=== PATIENT | male | born 1955 | race Caucasian/White ===

== ENCOUNTER 2020-08-09 15:20 | Inpatient (IN) | payer OTHER ==
[2020-08-09 17:24] LABS: BASO % 0.3 % (0-2.0); HEMATOCRIT 36.9 % (35.4-49); HEMOGLOBIN 12.2 GM/dL (11.7-16.9); LYMPH % 13.9 % (8-40); MCH 32.2 pg (25.7-33.7); MEAN CELL VOLUME 97.7 fl (80-96); MEAN PLT VOLUME 9.2 fl (7.5-11.1); MONO % 13.5 % (3.8-10.2); NEUT % 71.3 % (42.8-82.8); PLATELET COUNT 201 K/MM3 (134-434); RBC 3.78 M/mm3 (4.00-5.60); RDW 14.4 % (11.9-15.9); WHITE BLOOD COUNT 7.7 K/mm3 (4.0-10.0)
[2020-08-09 17:41] LABS: POTASSIUM 5.6 mmol/L (3.5-5.1)
[2020-08-09 17:44] LABS: CALCIUM 8.9 mg/dL (8.5-10.1)
[2020-08-09 17:45] LABS: ALBUMIN 3.9 g/dl (3.4-5.0); BLOOD UREA NITROGEN 63.5 mg/dL (7-18)
[2020-08-09 17:46] LABS: MAGNESIUM 2.6 mg/dL (1.8-2.4)
[2020-08-09 17:49] LABS: INR 1.05 (0.83-1.09); PROTHROMBIN TIME (PATIENT) 12.7 SEC (9.7-13.0)
[2020-08-09 17:51] LABS: BILIRUBIN,TOTAL 0.3 mg/dL (0.2-1); TOT PROT 8.5 g/dl (6.4-8.2)
[2020-08-09 18:06] LABS: N-TERMINAL BNP 46252.2 pg/ml (5-125)
[2020-08-09 18:08] LABS: CREATININE 10.9 mg/dL (0.55-1.3)
[2020-08-09] MEDS ORDERED: CARVEDILOL 25 MG TABLET (FP) PO SCH (22:00)
[2020-08-09 22:21] LABS: PHOSPHOROUS 8.7 mg/dL (2.5-4.9)
[2020-08-09] MEDS: CARVEDILOL 25 MG TABLET (FP) PO SCH (22:25)
[2020-08-09] MEDS ORDERED: ACETAMINOPHEN 1000 MG/100 ML VIAL (NON FORMULARY) IVPB ONE (22:41)
[2020-08-09] MEDS ORDERED: ACETAMINOPHEN INJECTION 100 ML IVPB ONE (23:12)
[2020-08-10] MEDS: SEVELAMER CARBONATE 800 MG TAB (FP) PO SCH ×3 (09:55→18:32)
[2020-08-10] MEDS ORDERED: amLODIPine BESYLATE 10 MG TABLET (FP) PO SCH (10:00)
[2020-08-10] MEDS: CARVEDILOL 25 MG TABLET (FP) PO SCH ×3 (10:36→21:06)
[2020-08-10] MEDS: amLODIPine BESYLATE 10 MG TABLET (FP) PO SCH (10:36)
[2020-08-10] MEDS ORDERED: SODIUM CHLORIDE 250 ML IV PRN (12:30)
[2020-08-10] MEDS ORDERED: HEPARIN NA (PORCINE) 5,000 UNITS/ML 1ML VIAL IVPUSH ONE (12:30)
[2020-08-10] MEDS: HEPARIN NA (PORCINE) 5,000 UNITS/ML 1ML VIAL IVPUSH SCH (14:37)
[2020-08-10 14:51] LABS: HEMATOCRIT 33.4 % (35.4-49); MCH 31.9 pg (25.7-33.7); MCHC 32.9 g/dl (32.0-35.9); MEAN CELL VOLUME 97.1 fl (80-96); MEAN PLT VOLUME 9.9 fl (7.5-11.1); PLATELET COUNT 180 K/MM3 (134-434); RBC 3.44 M/mm3 (4.00-5.60); RDW 14.6 % (11.9-15.9); WHITE BLOOD COUNT 8.3 K/mm3 (4.0-10.0)
[2020-08-10 15:46] LABS: POTASSIUM 4.6 mmol/L (3.5-5.1)
[2020-08-10 16:01] LABS: CALCIUM 8.3 mg/dL (8.5-10.1)
[2020-08-10 16:02] LABS: ALBUMIN 3.7 g/dl (3.4-5.0); BLOOD UREA NITROGEN 59.7 mg/dL (7-18)
[2020-08-10 16:05] LABS: PHOSPHOROUS 6.6 mg/dL (2.5-4.9)
[2020-08-10 16:06] LABS: BILIRUBIN,TOTAL 0.3 mg/dL (0.2-1)
[2020-08-10 16:08] LABS: MAGNESIUM 2.3 mg/dL (1.8-2.4)
[2020-08-10 16:10] LABS: CREATININE 9.8 mg/dL (0.55-1.3)
[2020-08-10 17:43] VITALS: BMI 25.9
[2020-08-10] MEDS: LOSARTAN POTASSIUM 50 MG TABLET PO SCH ×2 (18:32→18:39)
[2020-08-10] MEDS: CALCIUM ACETATE 667 MG CAPSULE (FP) PO SCH ×2 (18:32→18:38)
[2020-08-11] MEDS ORDERED: ACETAMINOPHEN 1000 MG/100 ML VIAL (NON FORMULARY) IVPB ONE
[2020-08-11 09:26] LABS: BASO % 0.8 % (0-2.0); EOS % 1.3 % (0-4.5); HEMATOCRIT 33.6 % (35.4-49); HEMOGLOBIN 10.8 GM/dL (11.7-16.9); LYMPH % 16.4 % (8-40); MCH 31.2 pg (25.7-33.7); MCHC 32.2 g/dl (32.0-35.9); MEAN CELL VOLUME 96.9 fl (80-96); MEAN PLT VOLUME 8.7 fl (7.5-11.1); MONO % 12.2 % (3.8-10.2); NEUT % 69.3 % (42.8-82.8); PLATELET COUNT 180 K/MM3 (134-434); RBC 3.47 M/mm3 (4.00-5.60); RDW 14.1 % (11.9-15.9); WHITE BLOOD COUNT 8.3 K/mm3 (4.0-10.0)
[2020-08-11 09:45] LABS: POTASSIUM 5.1 mmol/L (3.5-5.1)
[2020-08-11 09:47] LABS: ALBUMIN 3.3 g/dl (3.4-5.0)
[2020-08-11 09:48] LABS: BLOOD UREA NITROGEN 50.7 mg/dL (7-18); MAGNESIUM 2.3 mg/dL (1.8-2.4)
[2020-08-11 09:52] LABS: BILIRUBIN,TOTAL 0.3 mg/dL (0.2-1); TOT PROT 7.4 g/dl (6.4-8.2)
[2020-08-11 09:59] LABS: CREATININE 8.9 mg/dL (0.55-1.3)
[2020-08-11] MEDS ORDERED: PANTOPRAZOLE 40 MG TABLET PO SCH (10:00)
[2020-08-11] MEDS ORDERED: ASPIRIN 81 MG CHEWABLE TABLETS PO SCH (10:00)
[2020-08-11] MEDS ORDERED: FOLIC ACID 1 MG TABLET (FP) PO SCH (10:00)
[2020-08-11] MEDS: CARVEDILOL 25 MG TABLET (FP) PO SCH (10:04)
[2020-08-11] MEDS: amLODIPine BESYLATE 10 MG TABLET (FP) PO SCH (10:04)
[2020-08-11 11:02] VITALS: PULSE 74; TEMP 98.1
[2020-08-11] MEDS: LOSARTAN POTASSIUM 50 MG TABLET PO SCH (11:16)
[2020-08-11] MEDS: CALCIUM ACETATE 667 MG CAPSULE (FP) PO SCH ×2 (11:16→13:47)
[2020-08-11] MEDS: SEVELAMER CARBONATE 800 MG TAB (FP) PO SCH ×2 (11:16→13:47)
[2020-08-11 12:55] VITALS: BP 151/76
[2020-08-13 14:08] LABS: HEP B CORE AB, TOT Negative (Negative)
== END 2020-08-11 14:00 | disposition home or self-care (01) | DRG 291 ==
LOC: JER 15:20 → JERBED 19:50 → J5S 08-10 17:07
PROVIDERS: ADMIT Internal Medicine; ATTEND Internal Medicine
PROC: 5A1D70Z Performance of Urinary Filtration, Intermittent, Less than 6 Hours Per Day (ICD-10-PCS; principal; 2020-08-10)
DX: I13.2 Hypertensive heart and chronic kidney disease with heart failure and with stage 5 chronic kidney disease, or end stage renal disease (principal); N18.6 End stage renal disease; N17.9 Acute kidney failure, unspecified; I16.0 Hypertensive urgency; I50.9 Heart failure, unspecified; E11.65 Type 2 diabetes mellitus with hyperglycemia; E11.51 Type 2 diabetes mellitus with diabetic peripheral angiopathy without gangrene; E87.5 Hyperkalemia; K74.60 Unspecified cirrhosis of liver; E78.5 Hyperlipidemia, unspecified; M25.512 Pain in left shoulder; Z99.2 Dependence on renal dialysis
CPT/HCPCS: 36415; 71250-TC; 73030-TC-LT-FY; 80053; 80061; 82550; 82553; 83036; 83721; 83735; 83880; 84100; 84484; 85025; 85027; 85610; 85730; 86704; 86706; 86707; 86708; 86709; 86803; 87340; 93005; 93010; 97116-GP; 97161-GP; 99285-25; C9803; J0131; J1644; U0003

== ENCOUNTER 2020-09-04 07:28 | Inpatient (IN) | payer OTHER ==
[2020-09-04] MEDS ORDERED: CALCIUM GLUCONATE 10% - 1,000 MG/10 ML VIAL IVPUSH ONE (08:46)
[2020-09-04] MEDS ORDERED: CALCIUM GLUCONATE 10% - 1,000 MG/10 ML VIAL ONE (08:48)
[2020-09-04 09:01] LABS: VENOUS O2 SATURATION 43.5 % (70-80); VENOUS PCO2 44.1 mmHg (38-52); VENOUS PH 7.301 (7.310-7.410)
[2020-09-04 09:17] LABS: PROTHROMBIN TIME (PATIENT) 12.1 SEC (9.7-13.0)
[2020-09-04 09:20] LABS: ACTIVATED PTT 28.9 SECONDS (25.2-36.5)
[2020-09-04 09:26] LABS: BASO % 0.3 % (0-2.0); CALCIUM 7.4 mg/dL (8.5-10.1); EOS % 0.4 % (0-4.5); HEMATOCRIT 37.4 % (35.4-49); HEMOGLOBIN 12.2 GM/dL (11.7-16.9); LYMPH % 4.2 % (8-40); MCH 32.1 pg (25.7-33.7); MCHC 32.5 g/dl (32.0-35.9); MEAN CELL VOLUME 98.8 fl (80-96); MEAN PLT VOLUME 9.4 fl (7.5-11.1); MONO % 6.6 % (3.8-10.2); NEUT % 88.5 % (42.8-82.8); PLATELET COUNT 168 K/MM3 (134-434); RBC 3.78 M/mm3 (4.00-5.60); RDW 15.3 % (11.9-15.9); WHITE BLOOD COUNT 15.1 K/mm3 (4.0-10.0)
[2020-09-04 09:32] LABS: BILIRUBIN,TOTAL 0.8 mg/dL (0.2-1); TOT PROT 8.2 g/dl (6.4-8.2)
[2020-09-04] MEDS ORDERED: ACETAMINOPHEN 1000 MG/100 ML BAG IVPB ONE (09:33)
[2020-09-04 09:48] LABS: N-TERMINAL BNP 60634.6 pg/ml (5-125)
[2020-09-04] MEDS ORDERED: ACETAMINOPHEN INJECTION 100 ML IVPB ONE (09:49)
[2020-09-04 09:57] LABS: CREATININE 13.5 mg/dL (0.55-1.3)
[2020-09-04] MEDS ORDERED: INSULIN REGULAR HUMAN 100 UNITS/ML *VIAL IVPUSH ONE ×2 (09:59→10:07)
[2020-09-04] MEDS ORDERED: ALBUTEROL SO4 HFA INHALER IH ONE ×2 (09:59→10:30)
[2020-09-04] MEDS ORDERED: SODIUM ZIRCONIUM CYCLOSILICATE (LOKELMA) 5 GM PACKET PO ONE (10:00)
[2020-09-04] MEDS ORDERED: SODIUM BICARBONATE 8.4% 50 MEQ/50 ML DISP.SYRIN IVPUSH ONE (10:15)
[2020-09-04] MEDS ORDERED: SODIUM ZIRCONIUM CYCLOSILICATE (LOKELMA) 5 GM PACKET ONE (10:30)
[2020-09-04] MEDS ORDERED: SODIUM BICARBONATE 8.4% - 50 ML ONE (10:30)
[2020-09-04] MEDS ORDERED: INSULIN REGULAR HUMAN 100 UNITS/ML *VIAL ONE ×2 (10:36→10:49)
[2020-09-04] MEDS ORDERED: SODIUM CHLORIDE 250 ML IV PRN (10:56)
[2020-09-04] MEDS ORDERED: NITROGLYCERIN SUBLINGUAL 1/150 0.4 MG TAB SL ONE (11:43)
[2020-09-04] MEDS ORDERED: NITROGLYCERIN SUBLINGUAL 1/150 0.4 MG TAB ONE (11:54)
[2020-09-04] MEDS ORDERED: VANCOMYCIN 1 GM in D5W (PRE-DOCKED) 1,000 MG/250 ML IVPB ONE (12:09)
[2020-09-04] MEDS ORDERED: MEROPENEM 1 GM in DEXTROSE 5%-WATER 100 ML IVPB ONE (12:10)
[2020-09-04 12:27] LABS: ALBUMIN 3.6 g/dl (3.4-5.0); CALCIUM 7.6 mg/dL (8.5-10.1)
[2020-09-04 12:32] LABS: BILIRUBIN,TOTAL 0.7 mg/dL (0.2-1); TOT PROT 7.4 g/dl (6.4-8.2)
[2020-09-04 12:45] LABS: BLOOD UREA NITROGEN 108.1 mg/dL (7-18)
[2020-09-04 13:09] VITALS: BMI 26.2
[2020-09-04] MEDS ORDERED: MEROPENEM 1 GM VIAL (RESTRICTED TO ID) IVPB ONE (14:28)
[2020-09-04] MEDS ORDERED: DEXTROSE 5%-WATER 100 ML IVPB ONE (14:29)
[2020-09-04] MEDS: CALCIUM ACETATE 667 MG CAPSULE (FP) PO SCH ×2 (16:26→17:34)
[2020-09-04] MEDS: LOSARTAN POTASSIUM 50 MG TABLET PO SCH (16:26)
[2020-09-04] MEDS: ASPIRIN 81 MG CHEWABLE TABLETS PO SCH (16:27)
[2020-09-04] MEDS: ACETAMINOPHEN 500 MG TABLET (FP) PO PRN (16:27)
[2020-09-04] MEDS: amLODIPine BESYLATE 10 MG TABLET (FP) PO SCH (16:27)
[2020-09-04] MEDS: PANTOPRAZOLE 40 MG TABLET PO SCH (16:27)
[2020-09-04] MEDS: SEVELAMER CARBONATE 800 MG TAB (FP) PO SCH ×2 (16:29→17:34)
[2020-09-04] MEDS: INSULIN SLIDING SCALE (NOVOLOG) 1 VIAL SQ SCH (17:24)
[2020-09-04 20:22] LABS: CALCIUM 7.2 mg/dL (8.5-10.1)
[2020-09-04 20:36] LABS: BLOOD UREA NITROGEN 48.7 mg/dL (7-18)
[2020-09-04 20:43] LABS: CREATININE 8.1 mg/dL (0.55-1.3)
[2020-09-04] MEDS: CARVEDILOL 25 MG TABLET (FP) PO SCH (21:34)
[2020-09-05] MEDS: ACETAMINOPHEN 500 MG TABLET (FP) PO PRN (02:58)
[2020-09-05] MEDS ORDERED: ACETAMINOPHEN 1000 MG/100 ML BAG IVPB PRN (05:41)
[2020-09-05] MEDS ORDERED: oxyCODONE HCL 5 MG TABLET PO ONE (06:23)
[2020-09-05] MEDS: INSULIN SLIDING SCALE (NOVOLOG) 1 VIAL SQ SCH ×3 (06:50→16:32)
[2020-09-05] MEDS: FOLIC ACID 1 MG TABLET (FP) PO SCH (09:11)
[2020-09-05] MEDS: amLODIPine BESYLATE 10 MG TABLET (FP) PO SCH ×2 (09:11→09:23)
[2020-09-05] MEDS: ASPIRIN 81 MG CHEWABLE TABLETS PO SCH (09:11)
[2020-09-05] MEDS: PANTOPRAZOLE 40 MG TABLET PO SCH (09:11)
[2020-09-05] MEDS: SEVELAMER CARBONATE 800 MG TAB (FP) PO SCH ×3 (09:11→17:29)
[2020-09-05] MEDS: CALCIUM ACETATE 667 MG CAPSULE (FP) PO SCH ×3 (09:12→17:29)
[2020-09-05] MEDS: CARVEDILOL 25 MG TABLET (FP) PO SCH ×2 (09:12→21:22)
[2020-09-05] MEDS: LOSARTAN POTASSIUM 50 MG TABLET PO SCH (09:12)
[2020-09-05] MEDS ORDERED: SODIUM CHLORIDE 250 ML IV PRN (09:18)
[2020-09-05 09:26] LABS: BASO % 0.3 % (0-2.0); EOS % 1.1 % (0-4.5); HEMATOCRIT 33.5 % (35.4-49); HEMOGLOBIN 11.1 GM/dL (11.7-16.9); LYMPH % 8.6 % (8-40); MCH 32.9 pg (25.7-33.7); MCHC 33.2 g/dl (32.0-35.9); MEAN CELL VOLUME 98.9 fl (80-96); MEAN PLT VOLUME 10.1 fl (7.5-11.1); MONO % 11.4 % (3.8-10.2); NEUT % 78.6 % (42.8-82.8); PLATELET COUNT 136 K/MM3 (134-434); RBC 3.39 M/mm3 (4.00-5.60); RDW 15.3 % (11.9-15.9); WHITE BLOOD COUNT 10.6 K/mm3 (4.0-10.0)
[2020-09-05 09:55] LABS: ALBUMIN 3.1 g/dl (3.4-5.0); MAGNESIUM 2.2 mg/dL (1.8-2.4)
[2020-09-05 09:56] LABS: BLOOD UREA NITROGEN 60.1 mg/dL (7-18)
[2020-09-05 10:00] LABS: BILIRUBIN,TOTAL 0.9 mg/dL (0.2-1); TOT PROT 6.6 g/dl (6.4-8.2)
[2020-09-05] MEDS ORDERED: SODIUM ZIRCONIUM CYCLOSILICATE (LOKELMA) 5 GM PACKET PO ONE (10:00)
[2020-09-05 10:13] LABS: CREATININE 9.9 mg/dL (0.55-1.3)
[2020-09-05 10:14] LABS: CALCIUM 6.9 mg/dL (8.5-10.1)
[2020-09-05] MEDS ORDERED: DEXTROSE 50%-WATER - 25 GM/50 ML VIAL IVPUSH ONE (10:28)
[2020-09-05] MEDS ORDERED: CALCIUM GLUCONATE 10% - 1,000 MG/10 ML VIAL IVPB ONE (11:15)
[2020-09-05] MEDS ORDERED: INSULIN REGULAR HUMAN 100 UNITS/ML *VIAL SQ ONE (11:15)
[2020-09-05] MEDS ORDERED: DEXTROSE 50%-WATER - 25 GM/50 ML VIAL ONE (11:24)
[2020-09-05] MEDS ORDERED: PARICALCITOL 5 MCG/ML VIAL IVPUSH ONE (12:00)
[2020-09-05] MEDS ORDERED: HEPARIN NA (PORCINE) 5,000 UNITS/ML 1ML VIAL IVPUSH ONE (12:15)
[2020-09-05] MEDS ORDERED: PT OWN MED DRAWER 7, Y5N ONE ×3 (12:43→15:24)
[2020-09-05] MEDS ORDERED: LIDOCAINE HCL 1%, 10 MG/ML (20ML VIAL) SQ ONE (14:22)
[2020-09-05] MEDS ORDERED: methylPREDNISolone ACET (DEPO) 80 MG/1 ML VIAL IAR ONE (14:22)
[2020-09-06] MEDS: INSULIN SLIDING SCALE (NOVOLOG) 1 VIAL SQ SCH (06:12)
[2020-09-06 06:35] LABS: BASO % 0.1 % (0-2.0); HEMATOCRIT 35.8 % (35.4-49); HEMOGLOBIN 11.8 GM/dL (11.7-16.9); LYMPH % 5.2 % (8-40); MCH 32.3 pg (25.7-33.7); MCHC 32.9 g/dl (32.0-35.9); MEAN CELL VOLUME 98.1 fl (80-96); MEAN PLT VOLUME 9.8 fl (7.5-11.1); MONO % 6.3 % (3.8-10.2); NEUT % 88.4 % (42.8-82.8); PLATELET COUNT 139 K/MM3 (134-434); RBC 3.65 M/mm3 (4.00-5.60); RDW 15.5 % (11.9-15.9); WHITE BLOOD COUNT 12.9 K/mm3 (4.0-10.0)
[2020-09-06 07:10] LABS: BLOOD UREA NITROGEN 52.9 mg/dL (7-18); MAGNESIUM 1.9 mg/dL (1.8-2.4)
[2020-09-06 07:13] LABS: PHOSPHOROUS 6.2 mg/dL (2.5-4.9)
[2020-09-06 07:14] LABS: BILIRUBIN,TOTAL 0.5 mg/dL (0.2-1)
[2020-09-06 07:15] LABS: TOT PROT 6.8 g/dl (6.4-8.2)
[2020-09-06 07:24] LABS: CREATININE 8.4 mg/dL (0.55-1.3)
[2020-09-06 07:25] LABS: CALCIUM 6.8 mg/dL (8.5-10.1)
[2020-09-06] MEDS ORDERED: SODIUM ZIRCONIUM CYCLOSILICATE (LOKELMA) 5 GM PACKET PO SCH ×2 (07:54→10:30)
[2020-09-06] MEDS ORDERED: CALCIUM GLUCONATE 10% - 1,000 MG/10 ML VIAL IVPUSH ONE (07:57)
[2020-09-06] MEDS ORDERED: SODIUM ZIRCONIUM CYCLOSILICATE (LOKELMA) 10 GM PACKET PO SCH (07:59)
[2020-09-06] MEDS ORDERED: CALCIUM GLUCONATE 10% - 1,000 MG/10 ML VIAL IVPB ONE (08:00)
[2020-09-06] MEDS: SEVELAMER CARBONATE 800 MG TAB (FP) PO SCH (08:26)
[2020-09-06] MEDS: CALCIUM ACETATE 667 MG CAPSULE (FP) PO SCH (08:26)
[2020-09-06] MEDS ORDERED: INSULIN REGULAR HUMAN 100 UNITS/ML *VIAL IVPUSH ONE (08:30)
[2020-09-06] MEDS ORDERED: PT OWN MED DRAWER 7, Y5N ONE (10:32)
[2020-09-06] MEDS: ASPIRIN 81 MG CHEWABLE TABLETS PO SCH (10:34)
[2020-09-06] MEDS: FOLIC ACID 1 MG TABLET (FP) PO SCH (10:35)
[2020-09-06] MEDS: PANTOPRAZOLE 40 MG TABLET PO SCH (10:36)
[2020-09-06] MEDS: CARVEDILOL 25 MG TABLET (FP) PO SCH (10:37)
[2020-09-06] MEDS: LOSARTAN POTASSIUM 50 MG TABLET PO SCH (10:37)
[2020-09-06] MEDS: amLODIPine BESYLATE 10 MG TABLET (FP) PO SCH (10:37)
[2020-09-06 10:40] VITALS: BP 150/83; PULSE 68; TEMP 97.8
[2020-09-07] MEDS ORDERED: SODIUM ZIRCONIUM CYCLOSILICATE (LOKELMA) 5 GM PACKET PO ONE (11:40)
== END 2020-09-06 14:39 | disposition home or self-care (01) | DRG 640 ==
LOC: JER 07:28 → JERBED 10:29 → J4S 12:14
PROVIDERS: ADMIT Internal Medicine; ATTEND Internal Medicine
PROC: 3E0U33Z Introduction of Anti-inflammatory into Joints, Percutaneous Approach (ICD-10-PCS; principal; 2020-09-05)
PROC: 5A1D70Z Performance of Urinary Filtration, Intermittent, Less than 6 Hours Per Day (ICD-10-PCS; 2020-09-05)
DX: E87.70 Fluid overload, unspecified (principal); N18.6 End stage renal disease; J18.9 Pneumonia, unspecified organism; I13.2 Hypertensive heart and chronic kidney disease with heart failure and with stage 5 chronic kidney disease, or end stage renal disease; I24.8 Other forms of acute ischemic heart disease; I42.9 Cardiomyopathy, unspecified; E87.5 Hyperkalemia; E78.5 Hyperlipidemia, unspecified; E11.21 Type 2 diabetes mellitus with diabetic nephropathy; D63.1 Anemia in chronic kidney disease; M75.52 Bursitis of left shoulder; I25.119 Atherosclerotic heart disease of native coronary artery with unspecified angina pectoris; D72.829 Elevated white blood cell count, unspecified; Z99.2 Dependence on renal dialysis
CPT/HCPCS: 36415; 71045-TC-FY; 80048; 80053; 82550; 82803; 82962; 83735; 83880; 84100; 84484; 85025; 85610; 85730; 93005; 93010; 99285-25; C9803; J0131; J1644; U0003

== ENCOUNTER 2021-08-02 06:50 | Inpatient (IN) | payer OTHER ==
[2021-08-02 07:26] VITALS: BMI 29.5
[2021-08-02 08:26] LABS: HEMOGLOBIN 15.3 GM/dL (11.7-16.9); MCH 29.7 pg (25.7-33.7); MCHC 32.7 g/dl (32.0-35.9); MEAN CELL VOLUME 90.8 fl (80-96); PLATELET COUNT 140 10^3/uL (134-434); RBC 5.17 M/mm3 (4.00-5.60); RDW 14.7 % (11.9-15.9); WHITE BLOOD COUNT 7.9 K/mm3 (4.0-10.0)
[2021-08-02 08:44] LABS: CHLORIDE 108 mmol/L (98-107); SODIUM 138 mmol/L (136-145)
[2021-08-02 08:49] LABS: ANION GAP 10 MMOL/L (8-16); CALCIUM 9.4 mg/dL (8.5-10.1); CO2 21 mmol/L (21-32); GLUCOSE,RANDOM 178 mg/dL (74-106)
[2021-08-02 08:50] LABS: ALBUMIN 3.5 g/dl (3.4-5.0)
[2021-08-02 08:53] LABS: CREATININE 1.6 mg/dL (0.55-1.3); SGOT/AST 16 U/L (15-37); SGPT/ALT 26 U/L (13-61)
[2021-08-02 08:54] LABS: BILIRUBIN,TOTAL 0.5 mg/dL (0.2-1); TOT PROT 7.3 g/dl (6.4-8.2)
[2021-08-02 08:55] LABS: ALK PHOS 107 U/L (45-117)
[2021-08-02] MEDS ORDERED: IMIPENEM IV ONE (09:18)
[2021-08-02] MEDS ORDERED: CILASTATIN SODIUM IV ONE (09:18)
[2021-08-02] MEDS ORDERED: SODIUM CHLORIDE IV ONE (09:18)
[2021-08-02] MEDS ORDERED: VANCOMYCIN HCL 1,500 MG in DEXTROSE 5%-WATER - 500 ML IVPB ONE (09:24)
[2021-08-02 09:33] LABS: ANISOCYTOSIS 1+; MACROCYTOSIS 0; PLATELET ESTIMATE DECREASED
[2021-08-02] MEDS ORDERED: VANCOMYCIN PREMIX 1.5 GM 1,500 MG/300 ML BAG IVPB ONE (09:39)
[2021-08-02 13:23] LABS: URINE APPEARANCE CLEAR; URINE BILIRUBIN NEGATIVE (NEGATIVE); URINE COLOR YELLOW; URINE GLUCOSE (UA) NEGATIVE (NEGATIVE); URINE KETONE NEGATIVE (NEGATIVE); URINE LEUK ESTERASE NEGATIVE (NEGATIVE); URINE NITRITE NEGATIVE (NEGATIVE); URINE PROTEIN NEGATIVE (NEGATIVE); URINE UROBILINOGEN 0.2 mg/dL (0.2-1.0)
[2021-08-02] MEDS ORDERED: TACROLIMUS ANHYDROUS 5 MG CAPSULE PO ONE (15:36)
[2021-08-02] MEDS ORDERED: MYCOPHENOLATE SODIUM 360 MG TABLET.DR PO ONE (15:38)
[2021-08-02] MEDS ORDERED: PANTOPRAZOLE 40 MG TABLET PO ONE (15:39)
[2021-08-02] MEDS: SODIUM BICARBONATE 650 MG TABLET PO SCH (16:32)
[2021-08-02] MEDS: INSULIN SLIDING SCALE (NOVOLOG) 1 VIAL SQ SCH ×2 (18:31→23:07)
[2021-08-02] MEDS ORDERED: PT OWN MED DRAWER 7, Y5N ONE (22:58)
[2021-08-02] MEDS: SENNOSIDES 8.6MG TABLET (FP) PO SCH (23:19)
[2021-08-02] MEDS: INSULIN (LEVEMIR) 100 UNITS/ML UNITS SQ SCH (23:19)
[2021-08-03] MEDS: MYCOPHENOLATE SODIUM 360 MG TABLET.DR PO SCH ×3 (00:14→21:56)
[2021-08-03] MEDS: INSULIN SLIDING SCALE (NOVOLOG) 1 VIAL SQ SCH ×4 (06:24→21:53)
[2021-08-03 08:47] LABS: EOS % 0.9 % (0-4.5); HEMATOCRIT 46.5 % (35.4-49); HEMOGLOBIN 15.3 GM/dL (11.7-16.9); LYMPH % 10.2 % (8-40); MCH 30.2 pg (25.7-33.7); MEAN CELL VOLUME 91.4 fl (80-96); MEAN PLT VOLUME 9.4 fl (7.5-11.1); MONO % 9.3 % (3.8-10.2); NEUT % 78.6 % (42.8-82.8); PLATELET COUNT 134 10^3/uL (134-434); RBC 5.08 M/mm3 (4.00-5.60); RDW 14.6 % (11.9-15.9); WHITE BLOOD COUNT 8.6 K/mm3 (4.0-10.0)
[2021-08-03 09:19] LABS: CHLORIDE 108 mmol/L (98-107); SODIUM 138 mmol/L (136-145)
[2021-08-03 09:21] LABS: ANION GAP 11 MMOL/L (8-16); BLOOD UREA NITROGEN 21.9 mg/dL (7-18); CALCIUM 9.1 mg/dL (8.5-10.1); CO2 19 mmol/L (21-32)
[2021-08-03 09:22] LABS: GLUCOSE,RANDOM 214 mg/dL (74-106)
[2021-08-03 09:25] LABS: CREATININE 1.4 mg/dL (0.55-1.3)
[2021-08-03] MEDS: DOCUSATE SODIUM 100 MG CAPSULE (FP) PO SCH (09:47)
[2021-08-03] MEDS: SODIUM BICARBONATE 650 MG TABLET PO SCH (09:47)
[2021-08-03] MEDS: PANTOPRAZOLE 40 MG TABLET PO SCH (09:47)
[2021-08-03] MEDS: FOLIC ACID 1 MG TABLET (FP) PO SCH (09:47)
[2021-08-03 09:54] LABS: ANISOCYTOSIS 0; HELMET CELLS 0; HOWELL-JOLLY BODIES 0; MACROCYTOSIS 0; OVALOCYTE 0; PLATELET ESTIMATE DECREASED; ROULEAU 0; SICKELED CELLS 0; TARGET CELLS 0; TEAR DROP CELLS 0; TOXIC GRANULATION 0
[2021-08-03] MEDS ORDERED: TACROLIMUS ANHYDROUS 5 MG CAPSULE PO SCH ×2 (10:00)
[2021-08-03] MEDS ORDERED: TACROLIMUS ANHYDROUS 2 MG, TACROLIMUS ANHYDROUS 0.5 MG PO SCH (10:00)
[2021-08-03] MEDS: NYSTATIN 500,000 UNITS/5 ML SUSPENSION PO SCH ×3 (13:05→23:13)
[2021-08-03] MEDS ORDERED: TACROLIMUS ANHYDROUS 1 MG CAPSULE PO ONE (16:42)
[2021-08-03] MEDS: predniSONE 5 MG TABLET (UD) PO SCH (17:16)
[2021-08-03] MEDS: INSULIN (LEVEMIR) 100 UNITS/ML UNITS SQ SCH (21:24)
[2021-08-03] MEDS: SENNOSIDES 8.6MG TABLET (FP) PO SCH (21:30)
[2021-08-03] MEDS: TACROLIMUS ANHYDROUS 5 MG, TACROLIMUS ANHYDROUS 1 MG PO SCH (21:30)
[2021-08-03] MEDS ORDERED: TACROLIMUS ANHYDROUS 1 MG CAPSULE PO SCH (22:00)
[2021-08-04] MEDS: NYSTATIN 500,000 UNITS/5 ML SUSPENSION PO SCH ×4 (06:05→23:08)
[2021-08-04] MEDS: INSULIN SLIDING SCALE (NOVOLOG) 1 VIAL SQ SCH ×4 (06:05→23:10)
[2021-08-04 09:27] LABS: ALBUMIN 3.3 g/dl (3.4-5.0); CALCIUM 8.9 mg/dL (8.5-10.1)
[2021-08-04 09:28] LABS: BLOOD UREA NITROGEN 22.6 mg/dL (7-18)
[2021-08-04 09:31] LABS: CREATININE 1.3 mg/dL (0.55-1.3); TOT PROT 6.8 g/dl (6.4-8.2)
[2021-08-04 09:32] LABS: BILIRUBIN,TOTAL 0.5 mg/dL (0.2-1)
[2021-08-04] MEDS ORDERED: PT OWN MED DRAWER 7, Y5N ONE ×2 (09:49→22:59)
[2021-08-04] MEDS: predniSONE 5 MG TABLET (UD) PO SCH (09:53)
[2021-08-04] MEDS: FOLIC ACID 1 MG TABLET (FP) PO SCH (09:53)
[2021-08-04] MEDS: PANTOPRAZOLE 40 MG TABLET PO SCH (09:53)
[2021-08-04] MEDS: SODIUM BICARBONATE 650 MG TABLET PO SCH (09:53)
[2021-08-04] MEDS: DOCUSATE SODIUM 100 MG CAPSULE (FP) PO SCH (09:53)
[2021-08-04] MEDS: MYCOPHENOLATE SODIUM 360 MG TABLET.DR PO SCH ×2 (09:58→23:09)
[2021-08-04] MEDS: TACROLIMUS ANHYDROUS 5 MG, TACROLIMUS ANHYDROUS 1 MG PO SCH ×2 (09:59→23:08)
[2021-08-04] MEDS: INSULIN (LEVEMIR) 100 UNITS/ML UNITS SQ SCH (23:16)
[2021-08-04] MEDS: SENNOSIDES 8.6MG TABLET (FP) PO SCH (23:28)
[2021-08-05] MEDS: NYSTATIN 500,000 UNITS/5 ML SUSPENSION PO SCH ×4 (06:22→23:05)
[2021-08-05] MEDS: INSULIN SLIDING SCALE (NOVOLOG) 1 VIAL SQ SCH ×4 (06:25→22:09)
[2021-08-05 08:24] LABS: HEMATOCRIT 45.7 % (35.4-49); HEMOGLOBIN 15.2 GM/dL (11.7-16.9); MCH 30.1 pg (25.7-33.7); MCHC 33.3 g/dl (32.0-35.9); MEAN CELL VOLUME 90.5 fl (80-96); PLATELET COUNT 137 10^3/uL (134-434); RBC 5.05 M/mm3 (4.00-5.60); RDW 14.4 % (11.9-15.9); WHITE BLOOD COUNT 6.8 K/mm3 (4.0-10.0)
[2021-08-05 09:07] LABS: ALBUMIN 3.1 g/dl (3.4-5.0); BLOOD UREA NITROGEN 24.1 mg/dL (7-18)
[2021-08-05 09:08] LABS: CREATININE 1.4 mg/dL (0.55-1.3)
[2021-08-05 09:09] LABS: BILIRUBIN,TOTAL 0.5 mg/dL (0.2-1); TOT PROT 6.7 g/dl (6.4-8.2)
[2021-08-05 09:11] LABS: MAGNESIUM 1.7 mg/dL (1.8-2.4)
[2021-08-05 09:52] LABS: ANISOCYTOSIS 1+; MACROCYTOSIS 0; PLATELET ESTIMATE DECREASED
[2021-08-05] MEDS ORDERED: PT OWN MED DRAWER 7, Y5N ONE ×2 (09:55→21:47)
[2021-08-05] MEDS: FOLIC ACID 1 MG TABLET (FP) PO SCH (09:57)
[2021-08-05] MEDS: DOCUSATE SODIUM 100 MG CAPSULE (FP) PO SCH (09:57)
[2021-08-05] MEDS: PANTOPRAZOLE 40 MG TABLET PO SCH (09:57)
[2021-08-05] MEDS: SODIUM BICARBONATE 650 MG TABLET PO SCH (09:57)
[2021-08-05] MEDS: predniSONE 5 MG TABLET (UD) PO SCH (09:58)
[2021-08-05] MEDS: TACROLIMUS ANHYDROUS 5 MG, TACROLIMUS ANHYDROUS 1 MG PO SCH ×2 (09:59→22:09)
[2021-08-05] MEDS: MYCOPHENOLATE SODIUM 360 MG TABLET.DR PO SCH ×2 (10:00→22:09)
[2021-08-05] MEDS: INSULIN (LEVEMIR) 100 UNITS/ML UNITS SQ SCH ×2 (22:10→22:23)
[2021-08-05] MEDS: SENNOSIDES 8.6MG TABLET (FP) PO SCH (22:10)
[2021-08-06] MEDS: NYSTATIN 500,000 UNITS/5 ML SUSPENSION PO SCH ×3 (05:51→17:09)
[2021-08-06] MEDS: INSULIN SLIDING SCALE (NOVOLOG) 1 VIAL SQ SCH ×4 (06:05→21:14)
[2021-08-06] MEDS ORDERED: PT OWN MED DRAWER 7, Y5N ONE (11:12)
[2021-08-06] MEDS: DOCUSATE SODIUM 100 MG CAPSULE (FP) PO SCH (11:34)
[2021-08-06] MEDS: PANTOPRAZOLE 40 MG TABLET PO SCH (11:34)
[2021-08-06] MEDS: FOLIC ACID 1 MG TABLET (FP) PO SCH (11:34)
[2021-08-06] MEDS: SODIUM BICARBONATE 650 MG TABLET PO SCH (11:34)
[2021-08-06] MEDS: ASPIRIN 81 MG CHEWABLE TABLETS PO SCH (11:34)
[2021-08-06] MEDS: predniSONE 5 MG TABLET (UD) PO SCH (11:35)
[2021-08-06] MEDS: TACROLIMUS ANHYDROUS 5 MG, TACROLIMUS ANHYDROUS 1 MG PO SCH ×2 (11:36→21:11)
[2021-08-06] MEDS: MYCOPHENOLATE SODIUM 360 MG TABLET.DR PO SCH ×2 (11:36→21:12)
[2021-08-06] MEDS: INSULIN (LEVEMIR) 100 UNITS/ML UNITS SQ SCH (21:09)
[2021-08-06] MEDS: SENNOSIDES 8.6MG TABLET (FP) PO SCH (21:15)
[2021-08-07] MEDS: NYSTATIN 500,000 UNITS/5 ML SUSPENSION PO SCH ×4 (00:27→17:02)
[2021-08-07] MEDS: INSULIN SLIDING SCALE (NOVOLOG) 1 VIAL SQ SCH ×4 (06:13→22:14)
[2021-08-07] MEDS ORDERED: INSULIN (LEVEMIR) 100 UNITS/ML UNITS SQ SCH (06:46)
[2021-08-07] MEDS ORDERED: INSULIN (LEVEMIR) 100 UNITS/ML UNITS SQ ONE (08:26)
[2021-08-07] MEDS ORDERED: PT OWN MED DRAWER 7, Y5N ONE (08:53)
[2021-08-07 09:00] LABS: HEMATOCRIT 47.7 % (35.4-49); HEMOGLOBIN 15.7 GM/dL (11.7-16.9); MCHC 32.9 g/dl (32.0-35.9); MEAN PLT VOLUME 9.6 fl (7.5-11.1); PLATELET COUNT 151 10^3/uL (134-434); RBC 5.24 M/mm3 (4.00-5.60); RDW 14.5 % (11.9-15.9); WHITE BLOOD COUNT 8.3 K/mm3 (4.0-10.0)
[2021-08-07 09:13] LABS: CALCIUM 8.8 mg/dL (8.5-10.1)
[2021-08-07] MEDS: ASPIRIN 81 MG CHEWABLE TABLETS PO SCH (09:13)
[2021-08-07] MEDS: DOCUSATE SODIUM 100 MG CAPSULE (FP) PO SCH (09:13)
[2021-08-07] MEDS: predniSONE 5 MG TABLET (UD) PO SCH (09:13)
[2021-08-07 09:14] LABS: ALBUMIN 3.2 g/dl (3.4-5.0); MAGNESIUM 1.8 mg/dL (1.8-2.4)
[2021-08-07] MEDS: FOLIC ACID 1 MG TABLET (FP) PO SCH (09:14)
[2021-08-07] MEDS: TACROLIMUS ANHYDROUS 5 MG, TACROLIMUS ANHYDROUS 1 MG PO SCH ×2 (09:15→22:05)
[2021-08-07] MEDS: MYCOPHENOLATE SODIUM 360 MG TABLET.DR PO SCH ×2 (09:15→22:05)
[2021-08-07] MEDS: PANTOPRAZOLE 40 MG TABLET PO SCH ×2 (09:15→09:16)
[2021-08-07] MEDS: SODIUM BICARBONATE 650 MG TABLET PO SCH (09:16)
[2021-08-07 09:17] LABS: CREATININE 1.5 mg/dL (0.55-1.3)
[2021-08-07 09:18] LABS: BILIRUBIN,TOTAL 0.3 mg/dL (0.2-1)
[2021-08-07 09:19] LABS: TOT PROT 7.1 g/dl (6.4-8.2)
[2021-08-07 10:29] LABS: ANISOCYTOSIS 0; HELMET CELLS 0; HOWELL-JOLLY BODIES 0; MACROCYTOSIS 0; OVALOCYTE 0; PLATELET ESTIMATE DECREASED; ROULEAU 0; SICKELED CELLS 0; TARGET CELLS 0; TEAR DROP CELLS 0; TOXIC GRANULATION 0
[2021-08-07] MEDS: CARVEDILOL 3.125 MG TABLET (FP) PO SCH ×2 (15:17→22:33)
[2021-08-07] MEDS: SENNOSIDES 8.6MG TABLET (FP) PO SCH (22:04)
[2021-08-08] MEDS: NYSTATIN 500,000 UNITS/5 ML SUSPENSION PO SCH ×4 (00:15→13:03)
[2021-08-08] MEDS: INSULIN SLIDING SCALE (NOVOLOG) 1 VIAL SQ SCH ×3 (06:54→16:45)
[2021-08-08] MEDS: TACROLIMUS ANHYDROUS 5 MG, TACROLIMUS ANHYDROUS 1 MG PO SCH (10:04)
[2021-08-08] MEDS: SODIUM BICARBONATE 650 MG TABLET PO SCH ×2 (10:04→10:07)
[2021-08-08] MEDS: predniSONE 5 MG TABLET (UD) PO SCH (10:05)
[2021-08-08] MEDS: DOCUSATE SODIUM 100 MG CAPSULE (FP) PO SCH (10:05)
[2021-08-08] MEDS: PANTOPRAZOLE 40 MG TABLET PO SCH (10:05)
[2021-08-08] MEDS: CARVEDILOL 3.125 MG TABLET (FP) PO SCH (10:05)
[2021-08-08] MEDS: ASPIRIN 81 MG CHEWABLE TABLETS PO SCH (10:06)
[2021-08-08] MEDS: FOLIC ACID 1 MG TABLET (FP) PO SCH (10:07)
[2021-08-08] MEDS: MYCOPHENOLATE SODIUM 360 MG TABLET.DR PO SCH (10:07)
[2021-08-08] MEDS: ALBUTEROL SO4 2.5/IPRATROPIUM 0.5 INH SOL 3 ML VIAL.NEB. NEB SCH ×3 (11:40→15:35)
[2021-08-08 14:10] VITALS: BP 166/81; PULSE 66; TEMP 97.6
[2021-08-08] MEDS ORDERED: CARVEDILOL 6.25 MG TABLET (FP) PO SCH (22:00)
== END 2021-08-08 16:44 | DRG 194 ==
LOC: JER 06:50 → JERBED 10:25 → J7W 18:28
PROVIDERS: ADMIT Family Medicine; ATTEND Family Medicine
DX: J18.9 Pneumonia, unspecified organism (principal); Z94.0 Kidney transplant status; B37.0 Candidal stomatitis; J98.11 Atelectasis; D84.9 Immunodeficiency, unspecified; J90 Pleural effusion, not elsewhere classified; N18.9 Chronic kidney disease, unspecified; I25.119 Atherosclerotic heart disease of native coronary artery with unspecified angina pectoris; E78.5 Hyperlipidemia, unspecified; I12.9 Hypertensive chronic kidney disease with stage 1 through stage 4 chronic kidney disease, or unspecified chronic kidney disease; J45.909 Unspecified asthma, uncomplicated; K74.60 Unspecified cirrhosis of liver; J02.9 Acute pharyngitis, unspecified; J34.89 Other specified disorders of nose and nasal sinuses; E87.5 Hyperkalemia; R06.02 Shortness of breath; I51.7 Cardiomegaly; R07.81 Pleurodynia; R05.9 Cough, unspecified; M25.512 Pain in left shoulder; E11.22 Type 2 diabetes mellitus with diabetic chronic kidney disease
CPT/HCPCS: 36415; 71045-TC-FY; 71046-TC-FY; 71250-TC; 80048; 80053; 80197; 81003; 82550; 82962; 83036; 83735; 83880; 84484; 85025; 87040; 87086; 87804; 93005; 93010; 93306-TC; 94010; 94640; 97116-GP; 97161-GP; 99285-25; C9803; U0003; U0005

== ENCOUNTER 2021-08-21 08:14 | Inpatient (IN) | payer OTHER ==
[2021-08-21 08:43] VITALS: BMI 25.7
[2021-08-21] MEDS ORDERED: ACETAMINOPHEN 1000 MG/100 ML VIAL IVPB ONE (09:11)
[2021-08-21] MEDS ORDERED: ACETAMINOPHEN INJECTION 100 ML IVPB ONE (10:42)
[2021-08-21 10:51] LABS: INR 1.19 (0.83-1.09); PROTHROMBIN TIME (PATIENT) 13.9 SEC (9.7-13.0)
[2021-08-21 10:54] LABS: ACTIVATED PTT 44.3 SECONDS (25.2-36.5)
[2021-08-21 10:58] LABS: HEMOGLOBIN 16.2 GM/dL (11.7-16.9); MCH 29.9 pg (25.7-33.7); MCHC 33.2 g/dl (32.0-35.9); MEAN CELL VOLUME 90.1 fl (80-96); MEAN PLT VOLUME 9.4 fl (7.5-11.1); PLATELET COUNT 146 10^3/uL (134-434); RBC 5.44 M/mm3 (4.00-5.60); RDW 13.9 % (11.9-15.9); WHITE BLOOD COUNT 7.6 K/mm3 (4.0-10.0)
[2021-08-21 11:10] LABS: CHLORIDE 105 mmol/L (98-107); SODIUM 137 mmol/L (136-145)
[2021-08-21 11:12] LABS: ALBUMIN 3.4 g/dl (3.4-5.0); ANION GAP 9 MMOL/L (8-16); BLOOD UREA NITROGEN 28.3 mg/dL (7-18); CALCIUM 9.1 mg/dL (8.5-10.1); CO2 24 mmol/L (21-32); GLUCOSE,RANDOM 300 mg/dL (74-106)
[2021-08-21 11:15] LABS: CREATININE 1.4 mg/dL (0.55-1.3); SGOT/AST 30 U/L (15-37)
[2021-08-21 11:16] LABS: SGPT/ALT 31 U/L (13-61)
[2021-08-21 11:17] LABS: BILIRUBIN,TOTAL 0.6 mg/dL (0.2-1); TOT PROT 7.4 g/dl (6.4-8.2)
[2021-08-21 11:18] LABS: ALK PHOS 127 U/L (45-117)
[2021-08-21 12:58] LABS: ANISOCYTOSIS 2+; MACROCYTOSIS 0; PLATELET ESTIMATE DECREASED; TEAR DROP CELLS 1+
[2021-08-21 13:56] LABS: EPI CELLS 3 /uL (0-25.1); HYALINE CASTS 1 /uL (0-3.1); URINE APPEARANCE CLEAR; URINE BACTERIA 1 /uL (0-1359); URINE BILIRUBIN NEGATIVE (NEGATIVE); URINE COLOR YELLOW; URINE GLUCOSE (UA) 3+ (NEGATIVE); URINE KETONE NEGATIVE (NEGATIVE); URINE LEUK ESTERASE NEGATIVE (NEGATIVE); URINE NITRITE NEGATIVE (NEGATIVE); URINE PROTEIN 1+ (NEGATIVE); URINE RBC 18 /uL (0-23.9); URINE UROBILINOGEN 0.2 mg/dL (0.2-1.0); URINE WBC 5 /uL (0-25.8)
[2021-08-21] MEDS: predniSONE 5 MG TABLET (UD) PO SCH (20:34)
[2021-08-21] MEDS ORDERED: TACROLIMUS ANHYDROUS 1 MG CAPSULE PO SCH (22:00)
[2021-08-21] MEDS ORDERED: CARVEDILOL 3.125 MG TABLET (FP) ONE (22:29)
[2021-08-21] MEDS: TACROLIMUS ANHYDROUS 5 MG, TACROLIMUS ANHYDROUS 1 MG PO SCH (22:44)
[2021-08-21] MEDS: MYCOPHENOLATE SODIUM 360 MG TABLET.DR PO SCH (22:44)
[2021-08-21] MEDS ORDERED: SENNOSIDES 8.6MG TABLET (FP) PO SCH (23:45)
[2021-08-22] MEDS: CARVEDILOL 3.125 MG TABLET (FP) PO SCH ×3 (00:23→22:21)
[2021-08-22] MEDS ORDERED: CARVEDILOL 3.125 MG TABLET (FP) PO ONE (03:42)
[2021-08-22] MEDS ORDERED: CARVEDILOL 3.125 MG TABLET (FP) ONE ×2 (04:05→22:05)
[2021-08-22 07:59] LABS: HEMATOCRIT 47.5 % (35.4-49); HEMOGLOBIN 15.6 GM/dL (11.7-16.9); MCH 29.6 pg (25.7-33.7); MCHC 32.9 g/dl (32.0-35.9); MEAN PLT VOLUME 9.3 fl (7.5-11.1); PLATELET COUNT 133 10^3/uL (134-434); RBC 5.28 M/mm3 (4.00-5.60); RDW 14.1 % (11.9-15.9); WHITE BLOOD COUNT 7.5 K/mm3 (4.0-10.0)
[2021-08-22] MEDS: INSULIN SLIDING SCALE (NOVOLOG) 1 VIAL SQ SCH ×4 (08:10→23:02)
[2021-08-22] MEDS ORDERED: CARVEDILOL 12.5 MG TABLET (FP) ONE (08:12)
[2021-08-22 08:13] LABS: CHLORIDE 104 mmol/L (98-107); SODIUM 135 mmol/L (136-145)
[2021-08-22 08:15] LABS: CALCIUM 9.3 mg/dL (8.5-10.1)
[2021-08-22 08:16] LABS: ALBUMIN 3.4 g/dl (3.4-5.0); ANION GAP 5 MMOL/L (8-16); BLOOD UREA NITROGEN 32.8 mg/dL (7-18); CO2 26 mmol/L (21-32)
[2021-08-22 08:19] LABS: CREATININE 1.4 mg/dL (0.55-1.3); SGOT/AST 13 U/L (15-37); SGPT/ALT 31 U/L (13-61)
[2021-08-22 08:20] LABS: TOT PROT 7.1 g/dl (6.4-8.2)
[2021-08-22 08:21] LABS: ALK PHOS 129 U/L (45-117); BILIRUBIN,TOTAL 0.5 mg/dL (0.2-1)
[2021-08-22 08:38] LABS: GLUCOSE,RANDOM 409 mg/dL (74-106)
[2021-08-22] MEDS ORDERED: INSULIN (LEVEMIR) 100 UNITS/ML UNITS SQ ONE (09:11)
[2021-08-22] MEDS ORDERED: SODIUM CHLORIDE 0.45% 1,000 ML IV SCH (09:15)
[2021-08-22] MEDS ORDERED: ASPIRIN COATED 81 MG TABLET.EC ONE (09:19)
[2021-08-22] MEDS ORDERED: DOCUSATE SODIUM 100 MG CAPSULE (FP) PO ONE (09:19)
[2021-08-22] MEDS ORDERED: FOLIC ACID 1 MG TABLET (FP) ONE (09:19)
[2021-08-22] MEDS ORDERED: PANTOPRAZOLE 40 MG TABLET ONE (09:19)
[2021-08-22] MEDS ORDERED: HEPARIN NA (PORCINE) 5,000 UNITS/ML 1ML VIAL ONE ×2 (09:20→22:05)
[2021-08-22] MEDS: DOCUSATE SODIUM 100 MG CAPSULE (FP) PO SCH (09:32)
[2021-08-22] MEDS: ASPIRIN COATED 81 MG TABLET.EC PO SCH (09:32)
[2021-08-22] MEDS: FOLIC ACID 1 MG TABLET (FP) PO SCH (09:32)
[2021-08-22] MEDS: PANTOPRAZOLE 40 MG TABLET PO SCH (09:32)
[2021-08-22] MEDS: MYCOPHENOLATE SODIUM 360 MG TABLET.DR PO SCH ×2 (09:32→22:40)
[2021-08-22] MEDS: predniSONE 5 MG TABLET (UD) PO SCH (09:32)
[2021-08-22] MEDS: TACROLIMUS ANHYDROUS 5 MG, TACROLIMUS ANHYDROUS 1 MG PO SCH ×2 (09:32→22:40)
[2021-08-22] MEDS: SODIUM BICARBONATE 650 MG TABLET PO SCH (09:32)
[2021-08-22] MEDS: HEPARIN NA (PORCINE) 5,000 UNITS/ML 1ML VIAL SQ SCH ×2 (09:33→22:21)
[2021-08-22 16:00] LABS: PLATELET ESTIMATE NORMAL
[2021-08-22] MEDS: INSULIN (LEVEMIR) 100 UNITS/ML UNITS SQ SCH (23:02)
[2021-08-23] MEDS: INSULIN SLIDING SCALE (NOVOLOG) 1 VIAL SQ SCH ×4 (08:00→22:45)
[2021-08-23 08:08] LABS: HEMATOCRIT 46.2 % (35.4-49); MCH 29.1 pg (25.7-33.7); MCHC 32.4 g/dl (32.0-35.9); MEAN CELL VOLUME 89.8 fl (80-96); MEAN PLT VOLUME 9.3 fl (7.5-11.1); PLATELET COUNT 131 10^3/uL (134-434); RBC 5.15 M/mm3 (4.00-5.60); RDW 13.9 % (11.9-15.9); WHITE BLOOD COUNT 6.5 K/mm3 (4.0-10.0)
[2021-08-23 08:27] LABS: CHLORIDE 124 mmol/L (98-107)
[2021-08-23 08:30] LABS: GLUCOSE,RANDOM 288 mg/dL (74-106)
[2021-08-23 08:31] LABS: ALBUMIN 3.2 g/dl (3.4-5.0); BLOOD UREA NITROGEN 30.5 mg/dL (7-18); CALCIUM 8.9 mg/dL (8.5-10.1); CO2 24 mmol/L (21-32)
[2021-08-23 08:34] LABS: CREATININE 1.3 mg/dL (0.55-1.3); SGOT/AST 11 U/L (15-37); SGPT/ALT 25 U/L (13-61)
[2021-08-23 08:35] LABS: TOT PROT 6.5 g/dl (6.4-8.2)
[2021-08-23 08:36] LABS: ALK PHOS 113 U/L (45-117); BILIRUBIN,TOTAL 0.4 mg/dL (0.2-1)
[2021-08-23 08:43] LABS: ANION GAP 13 MMOL/L (8-16); SODIUM 162 mmol/L (136-145)
[2021-08-23] MEDS ORDERED: REGADENOSON 0.4 MG/5 ML PRE-FILLED SYRINGE IVPUSH ONE ×2 (09:41→11:00)
[2021-08-23 09:56] LABS: BLOOD UREA NITROGEN 29.8 mg/dL (7-18)
[2021-08-23 09:59] LABS: CREATININE 1.4 mg/dL (0.55-1.3)
[2021-08-23] MEDS: HEPARIN NA (PORCINE) 5,000 UNITS/ML 1ML VIAL SQ SCH ×2 (10:00→22:44)
[2021-08-23 10:27] LABS: ANISOCYTOSIS 1+; MACROCYTOSIS 0; PLATELET ESTIMATE DECREASED
[2021-08-23] MEDS ORDERED: PANTOPRAZOLE 40 MG TABLET ONE (13:28)
[2021-08-23] MEDS ORDERED: FOLIC ACID 1 MG TABLET (FP) ONE (13:29)
[2021-08-23] MEDS ORDERED: CARVEDILOL 3.125 MG TABLET (FP) ONE (13:29)
[2021-08-23] MEDS: ASPIRIN COATED 81 MG TABLET.EC PO SCH (13:33)
[2021-08-23] MEDS: DOCUSATE SODIUM 100 MG CAPSULE (FP) PO SCH (13:33)
[2021-08-23] MEDS: predniSONE 5 MG TABLET (UD) PO SCH (13:33)
[2021-08-23] MEDS: CARVEDILOL 3.125 MG TABLET (FP) PO SCH ×2 (13:33→21:20)
[2021-08-23] MEDS: TACROLIMUS ANHYDROUS 5 MG, TACROLIMUS ANHYDROUS 1 MG PO SCH ×2 (13:34→22:43)
[2021-08-23] MEDS: FOLIC ACID 1 MG TABLET (FP) PO SCH (13:34)
[2021-08-23] MEDS: MYCOPHENOLATE SODIUM 360 MG TABLET.DR PO SCH ×2 (13:34→22:43)
[2021-08-23] MEDS: PANTOPRAZOLE 40 MG TABLET PO SCH (13:34)
[2021-08-23] MEDS ORDERED: HEPARIN NA (PORCINE) 5,000 UNITS/ML 1ML VIAL ONE (13:37)
[2021-08-23] MEDS: SODIUM BICARBONATE 650 MG TABLET PO SCH (13:38)
[2021-08-23] MEDS: INSULIN (LEVEMIR) 100 UNITS/ML UNITS SQ SCH (22:44)
[2021-08-24] MEDS: INSULIN SLIDING SCALE (NOVOLOG) 1 VIAL SQ SCH ×4 (06:08→21:41)
[2021-08-24] MEDS ORDERED: PT OWN MED DRAWER 7, Y5N ONE ×2 (10:49→21:00)
[2021-08-24] MEDS: TACROLIMUS ANHYDROUS 5 MG, TACROLIMUS ANHYDROUS 1 MG PO SCH ×2 (10:59→21:25)
[2021-08-24] MEDS: ASPIRIN COATED 81 MG TABLET.EC PO SCH (11:00)
[2021-08-24] MEDS: MYCOPHENOLATE SODIUM 360 MG TABLET.DR PO SCH ×2 (11:00→21:25)
[2021-08-24] MEDS: CARVEDILOL 3.125 MG TABLET (FP) PO SCH ×2 (11:00→21:24)
[2021-08-24] MEDS: PANTOPRAZOLE 40 MG TABLET PO SCH (11:00)
[2021-08-24] MEDS: SODIUM BICARBONATE 650 MG TABLET PO SCH (11:00)
[2021-08-24] MEDS: DOCUSATE SODIUM 100 MG CAPSULE (FP) PO SCH (11:01)
[2021-08-24] MEDS: FOLIC ACID 1 MG TABLET (FP) PO SCH (11:01)
[2021-08-24] MEDS ORDERED: predniSONE 10 MG TABLET (UD) PO SCH (11:09)
[2021-08-24] MEDS: HEPARIN NA (PORCINE) 5,000 UNITS/ML 1ML VIAL SQ SCH ×2 (11:12→21:25)
[2021-08-24] MEDS: predniSONE 10 MG TABLET (UD) PO SCH (11:18)
[2021-08-24] MEDS: predniSONE 5 MG TABLET (UD) PO SCH (12:28)
[2021-08-24] MEDS: INSULIN (LEVEMIR) 100 UNITS/ML UNITS SQ SCH (21:42)
[2021-08-25] MEDS ORDERED: INSULIN (LEVEMIR) 100 UNITS/ML UNITS SQ SCH (07:00)
[2021-08-25] MEDS: INSULIN SLIDING SCALE (NOVOLOG) 1 VIAL SQ SCH ×3 (08:32→17:04)
[2021-08-25] MEDS: PANTOPRAZOLE 40 MG TABLET PO SCH (11:03)
[2021-08-25] MEDS: FOLIC ACID 1 MG TABLET (FP) PO SCH (11:03)
[2021-08-25] MEDS: DOCUSATE SODIUM 100 MG CAPSULE (FP) PO SCH (11:03)
[2021-08-25] MEDS: predniSONE 10 MG TABLET (UD) PO SCH (11:03)
[2021-08-25] MEDS: ASPIRIN COATED 81 MG TABLET.EC PO SCH (11:03)
[2021-08-25] MEDS: SODIUM BICARBONATE 650 MG TABLET PO SCH (11:03)
[2021-08-25] MEDS: CARVEDILOL 3.125 MG TABLET (FP) PO SCH (11:03)
[2021-08-25] MEDS: TACROLIMUS ANHYDROUS 5 MG, TACROLIMUS ANHYDROUS 1 MG PO SCH (11:04)
[2021-08-25] MEDS: HEPARIN NA (PORCINE) 5,000 UNITS/ML 1ML VIAL SQ SCH (11:04)
[2021-08-25] MEDS: MYCOPHENOLATE SODIUM 360 MG TABLET.DR PO SCH (11:05)
[2021-08-25 11:13] VITALS: PULSE 59; TEMP 98.6
[2021-08-25 17:12] VITALS: BP 140/75
== END 2021-08-25 17:30 | DRG 313 ==
LOC: JER 08:14 → JERBED 11:21 → J5S 08-23 20:03
PROVIDERS: ADMIT Family Medicine; ATTEND Family Medicine
DX: R07.89 Other chest pain (principal); J90 Pleural effusion, not elsewhere classified; J98.11 Atelectasis; Z94.0 Kidney transplant status; I42.8 Other cardiomyopathies; N18.5 Chronic kidney disease, stage 5; I51.7 Cardiomegaly; E78.5 Hyperlipidemia, unspecified; J45.909 Unspecified asthma, uncomplicated; K74.60 Unspecified cirrhosis of liver; I25.10 Atherosclerotic heart disease of native coronary artery without angina pectoris; D64.9 Anemia, unspecified; I12.9 Hypertensive chronic kidney disease with stage 1 through stage 4 chronic kidney disease, or unspecified chronic kidney disease; E11.22 Type 2 diabetes mellitus with diabetic chronic kidney disease
CPT/HCPCS: 36415; 71045-TC-FY; 71250-TC; 74176-TC; 78452-TC; 80048; 80053; 81003; 82550; 82962; 83735; 84484; 85025; 85610; 85730; 87086; 93005; 93010; 93017; 99285-25; A9502; C9803; J0131; J1644; J2785; U0003; U0005